=== PATIENT | male | born 1955 | race Caucasian/White ===

== ENCOUNTER 2016-05-14 01:22 | Emergency (ER) | payer MEDICAID ==
[~2016-05-14 01:22] MED LIST: /ESOM40CA OR; ACTO15TA OR; ASPI325T OR; ASTELIN NASAL SPRAY; CIPR25SS OR; DILA100C OR; GEMF600T OR; IBUP600T OR; KLOR10TA OR; LASI20TA OR; LISI5TAB OR; PLAV75TA2 OR; RAPAFLO OR; ZETI10TA OR
[2016-05-14] MEDS ORDERED: dexameTHASONE 20 MG/5 ML VIAL (J1100) As Ordered ONE ×2 (02:09→02:11)
[2016-05-14] MEDS ORDERED: diphenhydrAMINE INJ 50MG/ML VIAL (J1200) As Ordered ONE (02:10)
--- NOTE | 2016-05-14 02:56 | EDDOCDS ---
Nurse's Notes [facility] Name: Reji Armas Age: 60 yrs Sex: Male : 1955 Arrival Date: 05/14/2016 Time: 01:22 Bed 11 Private MD: Diagnosis: Allergy to other foods Presentation: 05/14 01:37 Presenting complaint: Patient states: swelling of tongue after eating a sandwhich with cz spicy brown mustard and an apple pie around 1830 last night fullness in throat and also left earache. Onset: The symptoms/episode began/occurred 7 hour(s) ago. This patient has not experienced a previous allergic reaction. Anaphylaxis evaluation, the patient reports or I have noted the following symptoms which indicate a significant risk of anaphylaxis: no signs or symptoms of anaphylaxis were noted. Adult Sepsis Screening: The patient does not have new or worsening altered mentation. Patient's respiratory rate is less than 22. Systolic blood pressure is greater than 100. Patient has a qSOFA score of 0- Negative Sepsis Screen. Suicide/Homicide risk assessment- the patient denies having any suicidal and/or homicidal ideations and does not present with any other emotional, behavioral or mental health complaints. Status: Patient is not a services program manager or dependent. Transition of care: patient was not received from another setting of care. 01:37 Acuity: BRODERICK Level 3 cz 01:37 Method Of Arrival: Walkin/Carried/Asstd cz Triage Assessment: 01:44 General: Appears in no apparent distress. Pain: Denies pain. HIV screening NA for this cz visit Offered previously. Historical: - Allergies: Codeine Phosphate; PENICILLINS; peppercorn; - Home Meds: 1. Artificial Tears 0.1-0.3% Opht 2. aspirin 325 mg Oral TbEC 1 tab once daily 3. atorvastatin 80 mg oral tab 1 tab once daily 4. Atrovent Inhl 17 mcg four times a day 5. Breo Ellipta 200-25 mcg/dose inhalation dsdv 6. calcitriol 0.25 mcg oral cap 1 cap once daily 7. cetirizine 10 mg oral tab 1 tab once daily 8. clopidogrel 75 mg oral tab 1 tab once daily 9. Colace 100 mg oral cap 1 cap 2 times per day 10. Combivent 20-100 mcg/act Inhl 11. famotidine 40 mg Oral tab 1 tab once daily 12. fenofibrate 160 mg oral tab 1 tab once daily 13. ferrous sulfate 325 mg (65 mg iron) Oral TbEC 325 mg twice a day 14. furosemide 40 mg Oral tab 1.5 tabs 2 times per day 15. Humalog Pen Sub-Q 5 unit with each meal if FSBS >150 16. Klor-Con 10 10 mEq Oral TbER 1 tab once daily 17. Lac-Hydrin 12 % Topical crea 18. Lantus 100 unit/mL Sub-Q soln 25 units daily 19. lisinopril 5 mg Oral tab 1 tab once daily 20. Mucinex 600 mg oral Ta12 twice a day 21. phenytoin sodium extended 100 mg oral cap 4 cap once daily 22. Tylenol 325 mg Oral tab as needed 23. Vitamin D Oral 14103 unit weekly - PMHx: Asthma; Chronic Renal Failure w/o Dialysis; COPD; Diabetes - IDDM: controlled; Gout; Hypercholesterolemia; Hypertension; - PSHx: Hernia repair; Tonsillectomy; - Social history: Smoking status: Patient uses tobacco products, heavy tobacco smoker. No barriers to communication noted, The patient speaks fluent Honduran, Speaks appropriately for age. - Family history: Not pertinent. - : The pt / caregiver states he / she is on anticoagulants: Plavix. Home medication list is obtained from [employer] import data. - Exposure Risk Screening:: None identified. Screenin:54 Screening information is obtained from the patient. Fall risk: No risks identified. mlc Assistance ADL's: requires no assistance with activities of daily living. Abuse/DV Screen: The patient / caregiver reports he/she is: not in a situation that causes fear, pain or injury. Nutritional screening: No deficits noted. Advance Directives: Currently, there is a health care proxy, Satya Armas, . There is no active DNR order. There is no living will. There is no Power of Pneumatic Tube Repairer. home support is adequate. Assessment: 01:54 General: Appears in no apparent distress, comfortable, Behavior is appropriate for age, mlc cooperative. Pain: Denies pain. Neurological: Level of Consciousness is awake, alert, Oriented to person, place, time. EENT: Ear canal ear wax noted. Throat is clear. EENT: pt reports feeling as if his tongue is swollen, no swelling noted. . Cardiovascular: Heart tones S1 S2 present. Respiratory: Airway is patent Respiratory effort is even, unlabored, Respiratory pattern is regular, Breath sounds are clear bilaterally. Denies shortness of breath. Derm: Skin is normal. 02:16 Reassessment: Patient appears in no apparent distress at this time. pt medicated per [facility] order. 02:52 Reassessment: Patient states feeling better. Patient states symptoms have improved. mlc General: Appears in no apparent distress, comfortable, Behavior is cooperative. Pain: Denies pain. Neurological: Level of Consciousness is awake, alert, Oriented to person, place, time. Respiratory: Airway is patent Respiratory effort is even, unlabored, Respiratory pattern is regular. Vital Signs: 01:44 BP 121 / 59; Pulse 99; Resp 16; Temp 97.1; Pulse Ox 96% on R/A; Weight 67.59 kg; Height cz 64 in. (162.56 cm); 02:52 BP 114 / 65; Pulse 105; Resp 18; Temp 98.7; Pulse Ox 95% ; Pain 0/10; mlc 01:44 Body Mass Index 25.58 (67.59 kg, 162.56 cm) Vitals: 01:44 Log In Time: May 14, 2016 at 01:24. ED Course: 01:24 Patient visited by Norma Stack Reg. hs2 01:24 Patient moved to Waiting hs2 01:37 Patient moved to Triage 1 cz 01:40 Triage Initiated cz 01:46 Sidra De Paz,JEIMY is Primary Nurse. cz 01:46 Patient moved to 11 cz 01:57 Patient visited by Sidra De Paz RN. [facility] 01:58 Mike Bowman DO is Attending Physician. cs11 01:59 Patient visited by Mike Bowman DO. cs11 02:17 Patient visited by Sidra De Paz RN. mlc 02:52 The patient / caregiver is instructed regarding the plan of care and ED course. mlc 02:52 No IV's were initiated during this patient's visit. No procedures done that require [facility] assistance. Administered Medications: 02:16 Drug: diphenhydrAMINE 25 mg [diphenhydramine 50 mg/mL injection solution (0.5 mL)] mlc Route: IM; Site: right deltoid; 02:54 Follow up: Response: No Adverse Reaction mlc 02:16 Drug: Decadron - Dexamethasone Sodium Phosphate 10 mg [dexamethasone 4 mg/mL injection mlc solution (2.5 mL)] Route: IM; Site: right gluteus; 02:55 Follow up: Response: No Adverse Reaction [facility] Order Results: There are currently no results for this order. Outcome: 02:36 Discharge ordered by Provider. cs11 02:52 Discharge Assessment: Patient awake, alert and oriented x 3. No cognitive and/or mlc functional deficits noted. Patient verbalized understanding of disposition instructions. patient administered narcotics - no. The following High Risk Discharge criteria are identified: None. Discharged to home ambulatory, with significant other. Condition: good Condition: stable Condition: improved. Discharge instructions given to patient, Instructed on discharge instructions, follow up and referral plans. medication usage, Demonstrated understanding of instructions, medications, Pt was receptive of discharge instructions/ teaching. Prescriptions given X 1. No special radiology studies were completed. Property sent home with patient. 02:55 Patient left the ED. [facility] Signatures: Rex Armenta RN RN cz Mike Bowman, DO cs11 Sidra De Paz RN RN [facility] Norma Stack, Reg Reg hs2 Corrections: (The following items were deleted from the chart) 01:46 01:37 Presenting complaint: Patient states: swelling of tongue after eating a sandwhich cz with spicy brown mustard and an apple pie around 1830 last night and also left earache cz MTDD
--- NOTE | 2016-05-14 02:56 | EDDOCDS ---
Physician Documentation [facility] Name: Reji Armas Age: 60 yrs Sex: Male : 1955 Arrival Date: 05/14/2016 Time: 01:22 Bed 11 Private MD: Disposition: 05/14/16 02:36 Discharged to Home/Self Care. Impression: Allergy to other foods. - Condition is Stable. - Prescriptions for Benadryl 25 mg Oral Capsule - take 1 capsule by ORAL route every 6 hours As needed; 12 tablet. - Medication Reconciliation, Local Pharmacy Hours form. - Follow up: Private Physician; When: Call to arrange an appointment; Reason: Recheck today's complaints. - Problem is new. - Symptoms have improved. Historical: - Allergies: Codeine Phosphate; PENICILLINS; peppercorn; - Home Meds: 1. Artificial Tears 0.1-0.3% Opht 2. aspirin 325 mg Oral TbEC 1 tab once daily 3. atorvastatin 80 mg oral tab 1 tab once daily 4. Atrovent Inhl 17 mcg four times a day 5. Breo Ellipta 200-25 mcg/dose inhalation dsdv 6. calcitriol 0.25 mcg oral cap 1 cap once daily 7. cetirizine 10 mg oral tab 1 tab once daily 8. clopidogrel 75 mg oral tab 1 tab once daily 9. Colace 100 mg oral cap 1 cap 2 times per day 10. Combivent 20-100 mcg/act Inhl 11. famotidine 40 mg Oral tab 1 tab once daily 12. fenofibrate 160 mg oral tab 1 tab once daily 13. ferrous sulfate 325 mg (65 mg iron) Oral TbEC 325 mg twice a day 14. furosemide 40 mg Oral tab 1.5 tabs 2 times per day 15. Humalog Pen Sub-Q 5 unit with each meal if FSBS >150 16. Klor-Con 10 10 mEq Oral TbER 1 tab once daily 17. Lac-Hydrin 12 % Topical crea 18. Lantus 100 unit/mL Sub-Q soln 25 units daily 19. lisinopril 5 mg Oral tab 1 tab once daily 20. Mucinex 600 mg oral Ta12 twice a day 21. phenytoin sodium extended 100 mg oral cap 4 cap once daily 22. Tylenol 325 mg Oral tab as needed 23. Vitamin D Oral 30877 unit weekly - PMHx: Asthma; Chronic Renal Failure w/o Dialysis; COPD; Diabetes - IDDM: controlled; Gout; Hypercholesterolemia; Hypertension; - PSHx: Hernia repair; Tonsillectomy; - Social history: Smoking status: Patient uses tobacco products, heavy tobacco smoker. No barriers to communication noted, The patient speaks fluent Pakistani, Speaks appropriately for age. - Family history: Not pertinent. - : The pt / caregiver states he / she is on anticoagulants: Plavix. Home medication list is obtained from [employer] import data. - Exposure Risk Screening:: None identified. Vital Signs: 05/14 01:44 BP 121 / 59; Pulse 99; Resp 16; Temp 97.1; Pulse Ox 96% on R/A; Weight 67.59 kg / cz 149.01 lbs; Height 64 in. (162.56 cm); 02:52 BP 114 / 65; Pulse 105; Resp 18; Temp 98.7; Pulse Ox 95% ; Pain 0/10; mlc 01:44 Body Mass Index 25.58 (67.59 kg, 162.56 cm) MDM: 02:05 diphenhydrAMINE 25 mg IM once ordered. cs11 02:05 Decadron - Dexamethasone Sodium Phosphate 10 mg IM once ordered. 11 02:52 Financial registration complete. [facility] Administered Medications: 02:16 Drug: diphenhydrAMINE 25 mg [diphenhydramine 50 mg/mL injection solution (0.5 mL)] [facility] Route: IM; Site: right deltoid; 02:54 Follow up: Response: No Adverse Reaction [facility] 02:16 Drug: Decadron - Dexamethasone Sodium Phosphate 10 mg [dexamethasone 4 mg/mL injection [facility] solution (2.5 mL)] Route: IM; Site: right gluteus; 02:55 Follow up: Response: No Adverse Reaction [facility] Signatures: Rex Armenta RN RN cz Mike Bowman DO DO [facility] Sidra De Paz RN RN [facility] Marzena Srinivasan [facility]
--- NOTE | 2016-05-16 03:56 | EDDOCDS ---
Physician Documentation [facility] Name: Reji Armas Age: 60 yrs Sex: Male : 1955 Arrival Date: 05/14/2016 Time: 01:22 Bed 11 Private MD: Disposition: 05/14/16 02:36 Discharged to Home/Self Care. Impression: Allergy to other foods. - Condition is Stable. - Prescriptions for Benadryl 25 mg Oral Capsule - take 1 capsule by ORAL route every 6 hours As needed; 12 tablet. - Medication Reconciliation, Local Pharmacy Hours form. - Follow up: Private Physician; When: Call to arrange an appointment; Reason: Recheck today's complaints. - Problem is new. - Symptoms have improved. Historical: - Allergies: Codeine Phosphate; PENICILLINS; peppercorn; - Home Meds: 1. Artificial Tears 0.1-0.3% Opht 2. aspirin 325 mg Oral TbEC 1 tab once daily 3. atorvastatin 80 mg oral tab 1 tab once daily 4. Atrovent Inhl 17 mcg four times a day 5. Breo Ellipta 200-25 mcg/dose inhalation dsdv 6. calcitriol 0.25 mcg oral cap 1 cap once daily 7. cetirizine 10 mg oral tab 1 tab once daily 8. clopidogrel 75 mg oral tab 1 tab once daily 9. Colace 100 mg oral cap 1 cap 2 times per day 10. Combivent 20-100 mcg/act Inhl 11. famotidine 40 mg Oral tab 1 tab once daily 12. fenofibrate 160 mg oral tab 1 tab once daily 13. ferrous sulfate 325 mg (65 mg iron) Oral TbEC 325 mg twice a day 14. furosemide 40 mg Oral tab 1.5 tabs 2 times per day 15. Humalog Pen Sub-Q 5 unit with each meal if FSBS >150 16. Klor-Con 10 10 mEq Oral TbER 1 tab once daily 17. Lac-Hydrin 12 % Topical crea 18. Lantus 100 unit/mL Sub-Q soln 25 units daily 19. lisinopril 5 mg Oral tab 1 tab once daily 20. Mucinex 600 mg oral Ta12 twice a day 21. phenytoin sodium extended 100 mg oral cap 4 cap once daily 22. Tylenol 325 mg Oral tab as needed 23. Vitamin D Oral 21465 unit weekly - PMHx: Asthma; Chronic Renal Failure w/o Dialysis; COPD; Diabetes - IDDM: controlled; Gout; Hypercholesterolemia; Hypertension; - PSHx: Hernia repair; Tonsillectomy; - Social history: Smoking status: Patient uses tobacco products, heavy tobacco smoker. No barriers to communication noted, The patient speaks fluent Turkmen, Speaks appropriately for age. - Family history: Not pertinent. - : The pt / caregiver states he / she is on anticoagulants: Plavix. Home medication list is obtained from [employer] import data. - Exposure Risk Screening:: None identified. Vital Signs: 05/14 01:44 BP 121 / 59; Pulse 99; Resp 16; Temp 97.1; Pulse Ox 96% on R/A; Weight 67.59 kg / cz 149.01 lbs; Height 64 in. (162.56 cm); 02:52 BP 114 / 65; Pulse 105; Resp 18; Temp 98.7; Pulse Ox 95% ; Pain 0/10; mlc 01:44 Body Mass Index 25.58 (67.59 kg, 162.56 cm) MDM: 02:05 diphenhydrAMINE 25 mg IM once ordered. cs11 02:05 Decadron - Dexamethasone Sodium Phosphate 10 mg IM once ordered. cs11 02:52 Financial registration complete. [facility] 03:10 [facility] Payment Agreement was scanned into [email or web address] and attached to record. hs2 17:42 T-Sheet-- Draft Copy was scanned into [email or web address] and attached to record. klr Administered Medications: 02:16 Drug: diphenhydrAMINE 25 mg [diphenhydramine 50 mg/mL injection solution (0.5 mL)] [facility] Route: IM; Site: right deltoid; 02:54 Follow up: Response: No Adverse Reaction [facility] 02:16 Drug: Decadron - Dexamethasone Sodium Phosphate 10 mg [dexamethasone 4 mg/mL injection [facility] solution (2.5 mL)] Route: IM; Site: right gluteus; 02:55 Follow up: Response: No Adverse Reaction [facility] Signatures: Rex Armenta RN RN cz Mike Bowman DO DO cs11 Sirda De Paz RN RN [facility] Marzena Srinivasan [facility] Norma Stack, Reg Reg hs2 Rashida Crawford r The chart was reviewed and I authenticate all verbal orders and agree with the evaluation and treatment provided.Attachments: 03:10 [facility] Payment Agreement hs2 17:42 T-Sheet-- Draft Copy klr Chart Complete MTDD
--- NOTE | 2016-05-16 03:56 | EDDOCDS ---
Nurse's Notes [facility] Name: Reji Armas Age: 60 yrs Sex: Male : 1955 Arrival Date: 05/14/2016 Time: 01:22 Bed 11 Private MD: Diagnosis: Allergy to other foods Presentation: 05/14 01:37 Presenting complaint: Patient states: swelling of tongue after eating a sandwhich with cz spicy brown mustard and an apple pie around 1830 last night fullness in throat and also left earache. Onset: The symptoms/episode began/occurred 7 hour(s) ago. This patient has not experienced a previous allergic reaction. Anaphylaxis evaluation, the patient reports or I have noted the following symptoms which indicate a significant risk of anaphylaxis: no signs or symptoms of anaphylaxis were noted. Adult Sepsis Screening: The patient does not have new or worsening altered mentation. Patient's respiratory rate is less than 22. Systolic blood pressure is greater than 100. Patient has a qSOFA score of 0- Negative Sepsis Screen. Suicide/Homicide risk assessment- the patient denies having any suicidal and/or homicidal ideations and does not present with any other emotional, behavioral or mental health complaints. Status: Patient is not a director of food and nutrition services or dependent. Transition of care: patient was not received from another setting of care. 01:37 Acuity: BRODERICK Level 3 cz 01:37 Method Of Arrival: Walkin/Carried/Asstd cz Triage Assessment: 01:44 General: Appears in no apparent distress. Pain: Denies pain. HIV screening NA for this cz visit Offered previously. Historical: - Allergies: Codeine Phosphate; PENICILLINS; peppercorn; - Home Meds: 1. Artificial Tears 0.1-0.3% Opht 2. aspirin 325 mg Oral TbEC 1 tab once daily 3. atorvastatin 80 mg oral tab 1 tab once daily 4. Atrovent Inhl 17 mcg four times a day 5. Breo Ellipta 200-25 mcg/dose inhalation dsdv 6. calcitriol 0.25 mcg oral cap 1 cap once daily 7. cetirizine 10 mg oral tab 1 tab once daily 8. clopidogrel 75 mg oral tab 1 tab once daily 9. Colace 100 mg oral cap 1 cap 2 times per day 10. Combivent 20-100 mcg/act Inhl 11. famotidine 40 mg Oral tab 1 tab once daily 12. fenofibrate 160 mg oral tab 1 tab once daily 13. ferrous sulfate 325 mg (65 mg iron) Oral TbEC 325 mg twice a day 14. furosemide 40 mg Oral tab 1.5 tabs 2 times per day 15. Humalog Pen Sub-Q 5 unit with each meal if FSBS >150 16. Klor-Con 10 10 mEq Oral TbER 1 tab once daily 17. Lac-Hydrin 12 % Topical crea 18. Lantus 100 unit/mL Sub-Q soln 25 units daily 19. lisinopril 5 mg Oral tab 1 tab once daily 20. Mucinex 600 mg oral Ta12 twice a day 21. phenytoin sodium extended 100 mg oral cap 4 cap once daily 22. Tylenol 325 mg Oral tab as needed 23. Vitamin D Oral 57775 unit weekly - PMHx: Asthma; Chronic Renal Failure w/o Dialysis; COPD; Diabetes - IDDM: controlled; Gout; Hypercholesterolemia; Hypertension; - PSHx: Hernia repair; Tonsillectomy; - Social history: Smoking status: Patient uses tobacco products, heavy tobacco smoker. No barriers to communication noted, The patient speaks fluent Northern Irish, Speaks appropriately for age. - Family history: Not pertinent. - : The pt / caregiver states he / she is on anticoagulants: Plavix. Home medication list is obtained from [employer] import data. - Exposure Risk Screening:: None identified. Screenin:54 Screening information is obtained from the patient. Fall risk: No risks identified. mlc Assistance ADL's: requires no assistance with activities of daily living. Abuse/DV Screen: The patient / caregiver reports he/she is: not in a situation that causes fear, pain or injury. Nutritional screening: No deficits noted. Advance Directives: Currently, there is a health care proxy, Satya Armas, . There is no active DNR order. There is no living will. There is no Power of Financial Services Sales Representative. home support is adequate. Assessment: 01:54 General: Appears in no apparent distress, comfortable, Behavior is appropriate for age, mlc cooperative. Pain: Denies pain. Neurological: Level of Consciousness is awake, alert, Oriented to person, place, time. EENT: Ear canal ear wax noted. Throat is clear. EENT: pt reports feeling as if his tongue is swollen, no swelling noted. . Cardiovascular: Heart tones S1 S2 present. Respiratory: Airway is patent Respiratory effort is even, unlabored, Respiratory pattern is regular, Breath sounds are clear bilaterally. Denies shortness of breath. Derm: Skin is normal. 02:16 Reassessment: Patient appears in no apparent distress at this time. pt medicated per [facility] order. 02:52 Reassessment: Patient states feeling better. Patient states symptoms have improved. mlc General: Appears in no apparent distress, comfortable, Behavior is cooperative. Pain: Denies pain. Neurological: Level of Consciousness is awake, alert, Oriented to person, place, time. Respiratory: Airway is patent Respiratory effort is even, unlabored, Respiratory pattern is regular. Vital Signs: 01:44 BP 121 / 59; Pulse 99; Resp 16; Temp 97.1; Pulse Ox 96% on R/A; Weight 67.59 kg; Height cz 64 in. (162.56 cm); 02:52 BP 114 / 65; Pulse 105; Resp 18; Temp 98.7; Pulse Ox 95% ; Pain 0/10; mlc 01:44 Body Mass Index 25.58 (67.59 kg, 162.56 cm) Vitals: 01:44 Log In Time: May 14, 2016 at 01:24. ED Course: 01:24 Patient visited by Norma Stack Reg. hs2 01:24 Patient moved to Waiting hs2 01:37 Patient moved to Triage 1 cz 01:40 Triage Initiated cz 01:46 Sidra De Paz,RN is Primary Nurse. cz 01:46 Patient moved to 11 cz 01:57 Patient visited by Sidra De Paz RN. mlc 01:58 Mike Bowman DO is Attending Physician. cs11 01:59 Patient visited by Mike Bowman DO. cs11 02:17 Patient visited by Sidra De Paz RN. mlc 02:52 The patient / caregiver is instructed regarding the plan of care and ED course. mlc 02:52 No IV's were initiated during this patient's visit. No procedures done that require [facility] assistance. 03:10 [facility] Payment Agreement was scanned into [employer] and attached to record. hs2 17:42 T-Sheet-- Draft Copy was scanned into [employer] and attached to record. klr Administered Medications: 02:16 Drug: diphenhydrAMINE 25 mg [diphenhydramine 50 mg/mL injection solution (0.5 mL)] [facility] Route: IM; Site: right deltoid; 02:54 Follow up: Response: No Adverse Reaction [facility] 02:16 Drug: Decadron - Dexamethasone Sodium Phosphate 10 mg [dexamethasone 4 mg/mL injection mlc solution (2.5 mL)] Route: IM; Site: right gluteus; 02:55 Follow up: Response: No Adverse Reaction [facility] Order Results: There are currently no results for this order. Outcome: 02:36 Discharge ordered by Provider. 11 02:52 Discharge Assessment: Patient awake, alert and oriented x 3. No cognitive and/or mlc functional deficits noted. Patient verbalized understanding of disposition instructions. patient administered narcotics - no. The following High Risk Discharge criteria are identified: None. Discharged to home ambulatory, with significant other. Condition: good Condition: stable Condition: improved. Discharge instructions given to patient, Instructed on discharge instructions, follow up and referral plans. medication usage, Demonstrated understanding of instructions, medications, Pt was receptive of discharge instructions/ teaching. Prescriptions given X 1. No special radiology studies were completed. Property sent home with patient. 02:55 Patient left the ED. [facility] Signatures: Rex Armenta, RN RN cz Mike Bowman, DO DO cs11 Sidra De Paz RN RN mlc Norma tSack, Reg Reg hs2 Rashida Crawford Corrections: (The following items were deleted from the chart) 01:46 01:37 Presenting complaint: Patient states: swelling of tongue after eating a sandwhich cz with spicy brown mustard and an apple pie around 1830 last night and also left earache cz Chart Complete MTDD
--- NOTE | 2016-05-16 03:56 | EDDOCDS ---
Physician Documentation [facility] Name: Rjei Armas Age: 60 yrs Sex: Male : 1955 Arrival Date: 05/14/2016 Time: 01:22 Bed 11 Private MD: Disposition: 05/14/16 02:36 Discharged to Home/Self Care. Impression: Allergy to other foods. - Condition is Stable. - Prescriptions for Benadryl 25 mg Oral Capsule - take 1 capsule by ORAL route every 6 hours As needed; 12 tablet. - Medication Reconciliation, Local Pharmacy Hours form. - Follow up: Private Physician; When: Call to arrange an appointment; Reason: Recheck today's complaints. - Problem is new. - Symptoms have improved. Historical: - Allergies: Codeine Phosphate; PENICILLINS; peppercorn; - Home Meds: 1. Artificial Tears 0.1-0.3% Opht 2. aspirin 325 mg Oral TbEC 1 tab once daily 3. atorvastatin 80 mg oral tab 1 tab once daily 4. Atrovent Inhl 17 mcg four times a day 5. Breo Ellipta 200-25 mcg/dose inhalation dsdv 6. calcitriol 0.25 mcg oral cap 1 cap once daily 7. cetirizine 10 mg oral tab 1 tab once daily 8. clopidogrel 75 mg oral tab 1 tab once daily 9. Colace 100 mg oral cap 1 cap 2 times per day 10. Combivent 20-100 mcg/act Inhl 11. famotidine 40 mg Oral tab 1 tab once daily 12. fenofibrate 160 mg oral tab 1 tab once daily 13. ferrous sulfate 325 mg (65 mg iron) Oral TbEC 325 mg twice a day 14. furosemide 40 mg Oral tab 1.5 tabs 2 times per day 15. Humalog Pen Sub-Q 5 unit with each meal if FSBS >150 16. Klor-Con 10 10 mEq Oral TbER 1 tab once daily 17. Lac-Hydrin 12 % Topical crea 18. Lantus 100 unit/mL Sub-Q soln 25 units daily 19. lisinopril 5 mg Oral tab 1 tab once daily 20. Mucinex 600 mg oral Ta12 twice a day 21. phenytoin sodium extended 100 mg oral cap 4 cap once daily 22. Tylenol 325 mg Oral tab as needed 23. Vitamin D Oral 59872 unit weekly - PMHx: Asthma; Chronic Renal Failure w/o Dialysis; COPD; Diabetes - IDDM: controlled; Gout; Hypercholesterolemia; Hypertension; - PSHx: Hernia repair; Tonsillectomy; - Social history: Smoking status: Patient uses tobacco products, heavy tobacco smoker. No barriers to communication noted, The patient speaks fluent [place], Speaks appropriately for age. - Family history: Not pertinent. - : The pt / caregiver states he / she is on anticoagulants: Plavix. Home medication list is obtained from [employer] import data. - Exposure Risk Screening:: None identified. Vital Signs: 05/14 01:44 BP 121 / 59; Pulse 99; Resp 16; Temp 97.1; Pulse Ox 96% on R/A; Weight 67.59 kg / cz 149.01 lbs; Height 64 in. (162.56 cm); 02:52 BP 114 / 65; Pulse 105; Resp 18; Temp 98.7; Pulse Ox 95% ; Pain 0/10; mlc 01:44 Body Mass Index 25.58 (67.59 kg, 162.56 cm) MDM: 02:05 diphenhydrAMINE 25 mg IM once ordered. cs11 02:05 Decadron - Dexamethasone Sodium Phosphate 10 mg IM once ordered. cs11 02:52 Financial registration complete. [facility] 03:10 [facility] Payment Agreement was scanned into [employer] and attached to record. hs2 17:42 T-Sheet-- Draft Copy was scanned into [employer] and attached to record. klr Administered Medications: 02:16 Drug: diphenhydrAMINE 25 mg [diphenhydramine 50 mg/mL injection solution (0.5 mL)] [facility] [place]: IM; Site: right deltoid; 02:54 Follow up: Response: No Adverse Reaction [facility]:16 Drug: Decadron - Dexamethasone Sodium Phosphate 10 mg [dexamethasone 4 mg/mL injection [facility] solution (2.5 mL)] Route: IM; Site: right gluteus; 02:55 Follow up: Response: No Adverse Reaction [facility] Signatures: Rex Armenta RN RN cz Mike Bowman DO DO cs11 Sidra De Paz RN RN [facility] Marzena Srinivasan [facility] Norma Stack, Reg Reg hs2 Rashida Crawford r The chart was reviewed and I authenticate all verbal orders and agree with the evaluation and treatment provided.Attachments: 03:10 [facility] Payment Agreement hs2 17:42 T-Sheet-- Draft Copy klr Chart Complete MTDD
== END 2016-05-14 02:55 | disposition home or self-care (01) ==
LOC: M ED 01:22
DX: T78.1XXA Other adverse food reactions, not elsewhere classified, initial encounter (principal); X58.XXXA Exposure to other specified factors, initial encounter; Y92.89 Other specified places as the place of occurrence of the external cause; Y93.89 Activity, other specified; Y99.8 Other external cause status; N18.9 Chronic kidney disease, unspecified; I12.9 Hypertensive chronic kidney disease with stage 1 through stage 4 chronic kidney disease, or unspecified chronic kidney disease; E10.22 Type 1 diabetes mellitus with diabetic chronic kidney disease; J44.9 Chronic obstructive pulmonary disease, unspecified; J45.909 Unspecified asthma, uncomplicated; E78.00 Pure hypercholesterolemia, unspecified; M10.9 Gout, unspecified; F17.200 Nicotine dependence, unspecified, uncomplicated; Z79.4 Long term (current) use of insulin; Z79.82 Long term (current) use of aspirin; Z79.51 Long term (current) use of inhaled steroids; Z79.899 Other long term (current) drug therapy; Z88.0 Allergy status to penicillin; Z88.5 Allergy status to narcotic agent; Z91.018 Allergy to other foods
CPT/HCPCS: 96372; 99283; J1100; J1200

== ENCOUNTER → 2016-05-30 | Outpatient (CLI) | payer MEDICAID | LOC: M LAB 11:43 | PROVIDERS: ATTEND Internal Medicine Nephrology | DX: N25.81 Secondary hyperparathyroidism of renal origin (principal); E11.22 Type 2 diabetes mellitus with diabetic chronic kidney disease; D63.1 Anemia in chronic kidney disease; M10.9 Gout, unspecified ==

== ENCOUNTER → 2016-05-30 | Outpatient (CLI) | payer MEDICAID ==
[2016-05-30 13:15] LABS: MEAN CORPUSCULAR HEMOGLOBIN 31.2 pg (27.0-33.0); MEAN CORPUSCULAR HGB CONC 32.5 g/dl (32.0-36.5); RED CELL DISTRIBUTION WIDTH 14.4 % (11.5-14.5); WHITE BLOOD COUNT 9.1 K/mm3 (4.0-10.0)
[2016-05-30 13:50] LABS: ALBUMIN/GLOBULIN RATIO 1.18 (1.00-1.93); BILIRUBIN,TOTAL 0.3 MG/DL (0.2-1.0); CALCIUM LEVEL 9.1 MG/DL (8.8-10.2); CREATININE FOR GFR 2.29 MG/DL (0.70-1.30); TOTAL PROTEIN 7.4 GM/DL (6.4-8.2)
[2016-05-30 13:51] LABS: POTASSIUM SERUM 5.7 MEQ/L (3.5-5.1)
== END ==
LOC: M LAB 12:00
PROVIDERS: ATTEND Nurse Practitioner Family
DX: R56.9 Unspecified convulsions (principal); E11.9 Type 2 diabetes mellitus without complications; D64.9 Anemia, unspecified

== ENCOUNTER 2016-06-16 17:42 | Emergency (ER) | payer MEDICAID ==
[~2016-06-16] VITALS: Ht 162.6 cm; Wt 73.0 kg
[2016-06-16] MEDS ORDERED: FERR325T3 PO (18:33)
[2016-06-16] MEDS ORDERED: MUCI600T34 PO (18:33)
[2016-06-16] MEDS ORDERED: COLA100C PO (18:33)
[2016-06-16] MEDS ORDERED: DRIS50002 PO (18:33)
[2016-06-16] MEDS ORDERED: ATOR1TAB18 PO (18:33)
[2016-06-16] MEDS ORDERED: CETI1SYP16 PO (18:33)
[2016-06-16] MEDS ORDERED: BREO1INH3 INH (18:33)
[2016-06-16] MEDS ORDERED: FENO145T PO (18:33)
[2016-06-16] MEDS ORDERED: INSULADS INJ (18:33)
[2016-06-16] MEDS ORDERED: INSULANT SC (18:33)
[2016-06-16] MEDS ORDERED: FAMO40TA3 PO (18:33)
[2016-06-16] MEDS ORDERED: CALC1CAP31 PO (18:33)
[2016-06-16] MEDS ORDERED: PERCOCET 5MG/325MG TAB PO ONE (21:15)
[2016-06-16 21:26] LABS: BASO # 0.1 K/mm3 (0.0-0.2); BASO % 0.5 % (0.0-1.0); EOS # 0.3 K/mm3 (0.0-0.50); EOS % 2.8 % (0.0-3.0); LARGE UNSTAINED CELL # 0.2 K/mm3 (0.0-0.4); LARGE UNSTAINED CELL % 1.6 % (0.0-4.0); LYMPH # 2.6 K/mm3 (1.5-4.5); LYMPH % 20.4 % (24.0-44.0); MEAN CORPUSCULAR HEMOGLOBIN 31.7 pg (27.0-33.0); MEAN CORPUSCULAR VOLUME 95.9 fl (80.0-96.0); MONO # 0.5 K/mm3 (0.0-0.8); NEUTROPHILS # 8.5 K/mm3 (1.8-7.7); NEUTROPHILS % 70.7 % (36.0-66.0); PLATELET COUNT, AUTOMATED 497 k/mm3 (150-450); RED CELL DISTRIBUTION WIDTH 14.8 % (11.5-14.5)
[2016-06-16 21:55] LABS: ERYTHROCYTE SEDIMENTATION RATE 70 mm/hr (0-20)
[2016-06-16 21:56] LABS: ALBUMIN 3.9 GM/DL (3.2-5.2); ALBUMIN/GLOBULIN RATIO 1.05 (1.00-1.93); BILIRUBIN,DIRECT 0.1 MG/DL (0.0-0.2); BILIRUBIN,TOTAL 0.3 MG/DL (0.2-1.0); CALCIUM LEVEL 8.8 MG/DL (8.8-10.2); CREATININE FOR GFR 3.31 MG/DL (0.70-1.30); GLOMERULAR FILTRATION RATE 20.3 (>49); POTASSIUM SERUM 4.4 MEQ/L (3.5-5.1); TOTAL PROTEIN 7.6 GM/DL (6.4-8.2); URIC ACID 4.6 MG/DL (3.5-7.2)
[2016-06-16] MEDS ORDERED: LIDOCAINE 2% MDV 20 ML VIAL SC ONE (23:00)
[2016-06-16 23:54] LABS: RBC ADVIA BF 0.02; RBC CALC. BF 20000 (< 10mm3 cells/uL); WBC ADVIA BF 19.8; WBC CALC. BF 19800 cells/uL (0-20)
[2016-06-16 23:55] LABS: BF DIFF IF INDICATED? YES (NO); SYNOVIAL FLUID COLOR YELLOW (YELLOW)
--- NOTE | 2016-06-17 00:09 | CR.PDOC ---
[facility] Consultation Consultation DATE OF CONSULTATION: Jun 16, 2016 at 20:01 REFERRING PROVIDER: Emergency room PA ATTENDING PHYSICIAN: Dr. Jason Brandt REASON FOR CONSULTATION/CHIEF COMPLAINT: Left knee pain and swelling. HISTORY OF PRESENT ILLNESS: Patient is a 60 y/o male with multiple medical comorbidities and a history of gout with multiple gouty attacks in multiple joints with a 3 day history of knee swelling and pain that has been worsening. He is able to bear weight with crutches and presented to the [facility] ED earlier today for evaluation. He denies recent fevers, chills, night sweats, or other constitutional symptoms. ALLERGIES: Please see below. HOME MEDICATIONS: Please see below. PAST MEDICAL HISTORY: 1. CKD. 2. Diabetes 3. COPD 4. Hypertension 5. hypercholesterolemia PAST SURGICAL HISTORY: 1. hernia repair 2. appendectomy FAMILY HISTORY: non contributory SOCIAL HISTORY: Marital status and/or living arrangements: lives with Tobacco use: everyday smoker more than 1/2 ppd for 30+ yrs REVIEW OF SYSTEMS: CONSTITUTIONAL: no fevers/chills/night sweats. CARDIOVASCULAR: no chest pain, palpitations. RESPIRATORY: no recent cough, wheeze, shortness of breath. GENITOURINARY: + urinary catheter x 3 years. MUSCULOSKELETAL: + L knee swelling per HPI. Multiple gouty attacks per HPI GASTROINTESTINAL: No nausea, vomiting, diarrhea. ENDOCRINE: no recent unintended weight gain/loss, heat/cold intolerance. PHYSICAL EXAMINATION: VITAL SIGNS: Please see below. GENERAL APPEARANCE: cachetic male, appears older than stated age, no acute distress. HEENT: anicteric sclera. CARDIOVASCULAR: 2+ DP/PT pulses, brisk capillary refill left lower extremity. EXTREMITIES: L knee exam demonstrates visible and palpable effusion. Patient with active ROM from 0-95 degrees. Minimal increase in pain with axial load. no pain with passive knee ROM. Ligamentous exam stable. NEUROLOGICAL: Sensory and motor intact in LLE femoral, tibial, sural, saphenous , SPN, DPN distributions. LABORATORY DATA: Please see below. RADIOGRAPHS: Plain radiographs of the knee demonstrate evidence of a knee effusion. No fracture or dislocation. Synovial fluid analysis: Synovial WBC 19,800 Crustals pending ASSESSMENT/PLAN: 60 y/o male with left knee effusion. Synovial WBC signifies inflammatory process. Infectious etiology ruled out with WBC count >50,000. 1. A left knee arthrocentesis was performed at the bedside. 2. Synovial fluid analysis reveals WBC 19,800. This signifies an inflammatory process. Likely secondary to gout. Crystals pending 3. Recommend supportive therapy with pain control. 4. NSAIDS contraindicated secondary to CKD, corticosteroids cautioned secondary to blood glucose impact in a diabetic. 5. Follow up with PCM regarding control of gouty attacks Vital Signs/I&O Vital Signs Date Time Temp Pulse Resp B/P Pulse Ox O2 Delivery O2 Flow Rate FiO2 06/16/16 22:26 99.5 105 16 97/55 92 Room Air Laboratory Data Labs 24H Laboratory Tests 2 06/16/16 21:20: Aspartate Amino Transf (AST/SGOT) 17, Alanine Aminotransferase (ALT/SGPT) 16, Alkaline Phosphatase 142H, Total Bilirubin 0.3, Direct Bilirubin 0.1, Albumin 3.9, Albumin/Globulin Ratio 1.05, Anion Gap 10, White Blood Count 12.0H, Red Blood Count 3.87L, Hemoglobin 12.2L, Hematocrit 37.1L, Mean Corpuscular Volume 95.9, Mean Corpuscular Hemoglobin 31.7, Mean Corpuscular Hemoglobin Concent 33.0 , Red Cell Distribution Width 14.8H, Platelet Count 497H, Neutrophils (%) (Auto ) 70.7H, Lymphocytes (%) (Auto) 20.4L, Monocytes (%) (Auto) 4.0, Eosinophils (% ) (Auto) 2.8, Basophils (%) (Auto) 0.5, Neutrophils # (Auto) 8.5H, Lymphocytes # (Auto) 2.6, Monocytes # (Auto) 0.5, Eosinophils # (Auto) 0.3, Basophils # ( Auto) 0.1, C-Reactive Protein, Quantitative 6.07H, Calcium Level 8.8, Erythrocyte Sedimentation Rate 70H, Glomerular Filtration Rate 20.3L, Large Unclassified Cells # 0.2, Large Unclassified Cells % 1.6, Total Protein 7.6, Uric Acid 4.6 CBC/BMP Laboratory Tests 06/16/16 21:20 Red Blood Count 3.87 L, Mean Corpuscular Volume 95.9, Mean Corpuscular Hemoglobin 31.7, Mean Corpuscular Hemoglobin Concent 33.0, Red Cell Distribution Width 14.8 H, Neutrophils (%) (Auto) 70.7 H, Lymphocytes (%) (Auto ) 20.4 L, Monocytes (%) (Auto) 4.0, Eosinophils (%) (Auto) 2.8, Basophils (%) ( Auto) 0.5, Neutrophils # (Auto) 8.5 H, Lymphocytes # (Auto) 2.6, Monocytes # ( Auto) 0.5, Eosinophils # (Auto) 0.3, Basophils # (Auto) 0.1 Allergies Coded Allergies: Codeine (Verified Allergy, Severe, DIFFICULTY BREATHING, THROAT SWELLING, 07/16/12) Penicillins (Verified Allergy, Severe, DIFFICULTY BREATHING, THROAT SWELLING, 07/16/12) Penicillins Cross Reactors (Verified Allergy, Severe, DIFFICULTY BREATHING , THROAT SWELLING, 07/16/12) Meat (Verified Allergy, Intermediate, SALAMI CAUSES SWELLING, 07/13/11) Home Medications Scheduled Aspirin (Aspirin) 325 Mg Tab 325 MG OR DAILY (Reported) Atorvastatin Calcium (Atorvastatin Calcium) 80 Mg Tab 80 MG PO DAILY (Reported ) Calcitriol (Calcitriol) 0.25 Mcg Cap 0.25 MCG PO DAILY (Reported) Cetirizine Hcl (Cetirizine HCl) 5 Mg/5 Ml Syp 10 MG PO DAILY (Reported) Clopidogrel Bisulfate (Plavix) 75 Mg Tab 75 MG OR DAILY (Reported) Famotidine (Famotidine) 40 Mg Tab 40 MG PO DAILY (Reported) Fenofibrate (Fenofibrate) 145 Mg Tab 160 MG PO DAILY (Reported) Ferrous Sulfate (Ferrous Sulfate) 325 Mg Tab 325 MG PO DAILY (Reported) Fluticasone/Vilanterol (Breo Ellipta 200-25 Mcg/INH) 1 Inh Inh 1 PUFF INH DAILY (Reported) Furosemide (Lasix) 20 Mg Tab 60 MG OR BID (Reported) Gemfibrozil (Gemfibrozil) 600 Mg Tab 600 MG OR BID (Reported) Guaifenesin (Mucinex) 600 Mg Tab #30 600 MG PO BID (Reported) Ibuprofen Micronized (Motrin) 600 Mg Tab 600 MG OR TID (Reported) Insulin Glargine (Lantus) 1 Units/0.01 Ml Susp 1 UNITS SC QHS (Reported) Insulin Glargine (Lantus) 100 Unit/Ml Inj 20 UNIT INJ QHS (Reported) Lisinopril (Lisinopril) 5 Mg Tab 5 MG OR DAILY (Reported) Phenytoin (Dilantin) 100 Mg Cap 100 MG OR TID (Reported) Vitamin D (Drisdol) 50,000 Unit Cap 50,000 UNIT PO 1XWK (Reported) Scheduled PRN Docusate Sodium (Colace) 100 Mg Cap 100 MG PO DAILY PRN PRN DAILY (Reported) LINDA BRANDT MD Jun 16, 2016 23:41
[2016-06-17] MEDS ORDERED: PERC5TAB6 PO (00:16)
[2016-06-17 00:37] VITALS: BP 147/81
[2016-06-17 07:18] LABS: CC BF DIFF EXAM UNSPUN; HCT SOURCE LFT KNEE
--- NOTE | 2016-06-17 08:41 | REP ---
Left knee series: Five views. History: Pain and swelling. Findings: There is diffuse osteopenia. Mild patellofemoral spurring is seen. Subcortical cyst formation is seen in the central patella on the lateral radiograph. There is evidence of a joint effusion. Vascular calcification is noted. Very early spurring is seen in the medial tibial femoral compartment. Impression: Diffuse osteoporosis. Early osteoarthritic changes in the medial and patellofemoral compartment. Joint effusion. Subcortical cyst formation in the central patella. No acute bony abnormality. Signed by Brett Gambino MD 06/17/2016 10:44 A
== END 2016-06-17 00:38 | disposition home or self-care (01) ==
LOC: M ED 20:01
DX: M25.562 Pain in left knee (principal); I12.9 Hypertensive chronic kidney disease with stage 1 through stage 4 chronic kidney disease, or unspecified chronic kidney disease; R56.9 Unspecified convulsions; E78.00 Pure hypercholesterolemia, unspecified; J44.9 Chronic obstructive pulmonary disease, unspecified; N18.3 Chronic kidney disease, stage 3 (moderate); M10.9 Gout, unspecified; Z88.0 Allergy status to penicillin; Z88.5 Allergy status to narcotic agent; Z91.018 Allergy to other foods; Z79.899 Other long term (current) drug therapy; Z79.82 Long term (current) use of aspirin; Z79.1 Long term (current) use of non-steroidal anti-inflammatories (NSAID); Z79.4 Long term (current) use of insulin

== ENCOUNTER → 2016-07-19 | Outpatient (CLI) | payer MEDICAID ==
[~2016-07-19] MED LIST changes: +ATOR1TAB18 PO; +BREO1INH3 INH; +CALC1CAP31 PO; +CETI1SYP16 PO; +COLA100C3 PO; +DRIS50002 PO; +FAMO40TA3 PO; +FENO145T PO; +FERR325T3 PO; +INSULADS INJ; +INSULANT SC; +MUCI600T34 PO; +PERC5TAB6 PO
== END ==
LOC: M WHC 15:22
PROVIDERS: ATTEND Nurse Practitioner Family
DX: M81.0 Age-related osteoporosis without current pathological fracture (principal); Z13.820 Encounter for screening for osteoporosis

== ENCOUNTER → 2016-07-20 | Outpatient (CLI) | payer MEDICAID ==
[2016-07-20 10:43] LABS: MEAN CORPUSCULAR HEMOGLOBIN 31.7 pg (27.0-33.0); MEAN CORPUSCULAR HGB CONC 32.7 g/dl (32.0-36.5); MEAN CORPUSCULAR VOLUME 96.9 fl (80.0-96.0); RED CELL DISTRIBUTION WIDTH 14.4 % (11.5-14.5); WHITE BLOOD COUNT 9.8 K/mm3 (4.0-10.0)
== END ==
LOC: M LAB 10:01
PROVIDERS: ATTEND Nurse Practitioner Family
DX: M10.062 Idiopathic gout, left knee (principal)

== ENCOUNTER → 2016-08-26 | Outpatient (CLI) | payer MEDICAID ==
[2016-08-26 18:01] LABS: MEAN CORPUSCULAR HEMOGLOBIN 33.6 pg (27.0-33.0); MEAN CORPUSCULAR HGB CONC 34.1 g/dl (32.0-36.5); MEAN CORPUSCULAR VOLUME 98.4 fl (80.0-96.0); RED CELL DISTRIBUTION WIDTH 14.3 % (11.5-14.5); WHITE BLOOD COUNT 8.5 K/mm3 (4.0-10.0)
[2016-08-26 18:32] LABS: ALBUMIN 3.7 GM/DL (3.2-5.2); CALCIUM LEVEL 8.5 MG/DL (8.8-10.2); CREATININE FOR GFR 2.41 MG/DL (0.70-1.30); GLOMERULAR FILTRATION RATE 29.1 (>49); PHOSPHORUS LEVEL 4.5 MG/DL (2.5-4.9); POTASSIUM SERUM 4.4 MEQ/L (3.5-5.1)
== END ==
LOC: M SMT 14:39
PROVIDERS: ATTEND Internal Medicine Nephrology
DX: N18.4 Chronic kidney disease, stage 4 (severe) (principal); D63.1 Anemia in chronic kidney disease; M10.9 Gout, unspecified; N25.81 Secondary hyperparathyroidism of renal origin

== ENCOUNTER → 2016-09-23 | Outpatient (CLI) | payer MEDICAID | LOC: M SMT 13:50 | PROVIDERS: ATTEND Nurse Practitioner Family | DX: Z12.5 Encounter for screening for malignant neoplasm of prostate (principal) ==

== ENCOUNTER → 2016-09-29 | Outpatient (CLI) | payer MEDICAID ==
--- NOTE | 2016-09-29 16:58 | REP ---
ULTRASOUND RIGHT INGUINAL CANAL: Real-time sonographic evaluation of right inguinal canal performed. There are a few lymph nodes present, the largest 3.6 x 0.9 x 0.8 cm. This is mildly enlarged. In the subcutaneous soft tissues, is a heterogeneous hypoechoic and hyperechoic nodule measuring 11 x 4 x 8 mm. This is nonspecific. Given its superficial location, it could represent a sebaceous cyst. Signed by Roldan Bobby MD 09/29/2016 05:16 P
== END ==
LOC: M SMT 14:13
PROVIDERS: ATTEND Nurse Practitioner Family
DX: R10.30 Lower abdominal pain, unspecified (principal)

== ENCOUNTER → 2016-10-18 | Outpatient (CLI) | payer OTHER ==
[~2016-10-18] MED LIST changes: +ALBU17IN INH; -ATOR1TAB18 PO; +ATOR80TA59 PO; -COLA100C3 PO; +COLA100C5 PO; +COMBAER6 INH; +FLUT22IN INH; -MUCI600T34 PO; +MUCI600T37 PO; +OXYC1TAB23 PO; +PERC5TAB12 PO; -PERC5TAB6 PO
--- NOTE | 2016-10-18 23:14 | REP ---
Clinical: Urinary retention. Comparison: 09/01/2015. Findings: Lung bases demonstrate mild bronchiectasis and scattered chronic appearing fibroatelectatic changes. Liver, spleen, pancreas, gallbladder, bilateral adrenal glands and kidneys are relatively normal / stable. Mild chronic-appearing perinephric stranding is appreciated and essentially unchanged. No hydroureteronephrosis. The enteric system is without obstruction or acute inflammatory process. Few scattered sigmoid diverticula noted without acute diverticulitis. 2 cm fat containing periumbilical hernia noted. Pelvis demonstrates a Mike catheter in collapsed bladder and mild bladder wall thickening cannot be excluded. Prostate gland is age-appropriate. No ascites. No free air. No obvious adenopathy. Moderate atherosclerotic changes of the aorta and branch vessels noted without aneurysm. Musculoskeletal structures are intact. Impression: 1. Lung bases demonstrate chronic-appearing bronchiectasis and mild fibroatelectatic changes which may warrant clinical correlation and follow up. 2. 2 cm fat containing periumbilical hernia. 3. Scattered sigmoid diverticula without acute diverticulitis. 4. Relatively normal appearance to the urinary tract system including Mike catheter in collapsed bladder. Mild bladder wall thickening cannot be excluded. 5. Further chronic changes as described above. No free fluid, adenopathy, or obvious acute abdominopelvic pathology otherwise appreciated. Signed by Brian Mathew MD 10/18/2016 11:05 P
== END ==
LOC: M RAD 12:05
PROVIDERS: ATTEND Urology
DX: R33.9 Retention of urine, unspecified (principal)

== ENCOUNTER → 2016-10-24 | Outpatient (CLI) | payer OTHER, MEDICAID ==
[2016-10-24 19:31] LABS: ALBUMIN 4.3 GM/DL (3.2-5.2); ALBUMIN/GLOBULIN RATIO 1.39 (1.00-1.93); BILIRUBIN,TOTAL 0.4 MG/DL (0.2-1.0); CALCIUM LEVEL 9.2 MG/DL (8.8-10.2); CREATININE FOR GFR 2.52 MG/DL (0.70-1.30); GLOMERULAR FILTRATION RATE 27.7 (>49); TOTAL PROTEIN 7.4 GM/DL (6.4-8.2)
== END ==
LOC: M SMT 14:22
PROVIDERS: ATTEND Nurse Practitioner Family
DX: E11.9 Type 2 diabetes mellitus without complications (principal)

== ENCOUNTER 2016-12-02 15:05 | Emergency (ER) | payer OTHER, MEDICAID ==
[~2016-12-02] VITALS: Ht 157.5 cm; Wt 79.5 kg
[~2016-12-02 15:05] MED LIST changes: -ALBU17IN INH; -COMBAER6 INH; -FLUT22IN INH; -OXYC1TAB23 PO
[2016-12-02 15:06] VITALS: BP 108/57
[2016-12-02] MEDS ORDERED: FLUT22IN INH (15:30)
[2016-12-02] MEDS ORDERED: ALBU17IN INH (15:30)
[2016-12-02] MEDS ORDERED: COMBAER6 INH (15:30)
--- NOTE | 2016-12-02 16:08 | REP ---
Left ankle series: Four views. History: Injury in a fall. Findings: Four views of the left ankle demonstrate anterior lateral soft tissue swelling. There is a subcortical cyst in the distal fibula. Ankle mortise is intact. Medial malleolar spurring is seen. No fracture is seen. Impression: No fracture noted. Osteoarthritic changes. Signed by Brett Gambino MD 12/02/2016 05:01 P
[2016-12-02] MEDS ORDERED: OXYC1TAB23 PO (17:13)
== END 2016-12-02 17:23 | disposition home or self-care (01) ==
LOC: M ED 15:05
DX: S93.412A Sprain of calcaneofibular ligament of left ankle, initial encounter (principal); X50.1XXA Overexertion from prolonged static or awkward postures, initial encounter; Z79.4 Long term (current) use of insulin; Y92.099 Unspecified place in other non-institutional residence as the place of occurrence of the external cause; Y93.9 Activity, unspecified; Y99.9 Unspecified external cause status; M19.072 Primary osteoarthritis, left ankle and foot; E10.9 Type 1 diabetes mellitus without complications; I10 Essential (primary) hypertension; F17.200 Nicotine dependence, unspecified, uncomplicated; Z86.73 Personal history of transient ischemic attack (TIA), and cerebral infarction without residual deficits; R56.9 Unspecified convulsions; E78.00 Pure hypercholesterolemia, unspecified; J45.909 Unspecified asthma, uncomplicated; J44.9 Chronic obstructive pulmonary disease, unspecified; K21.9 Gastro-esophageal reflux disease without esophagitis; N18.3 Chronic kidney disease, stage 3 (moderate); M19.90 Unspecified osteoarthritis, unspecified site; Z79.82 Long term (current) use of aspirin; Z79.899 Other long term (current) drug therapy; Z91.018 Allergy to other foods; Z88.5 Allergy status to narcotic agent; Z88.0 Allergy status to penicillin

== ENCOUNTER → 2017-01-02 | Outpatient (CLI) | payer OTHER, MEDICAID ==
[~2017-01-02] MED LIST changes: +ALBU17IN INH; +COMBAER6 INH; +FLUT22IN INH; +OXYC1TAB23 PO
[2017-01-02 13:49] LABS: BASO # 0.1 10^3/uL (0.0-0.2); BASO % 0.6 % (0.0-1.0); EOS # 0.3 10^3/uL (0.0-0.50); EOS % 2.3 % (0.0-3.0); IMMATURE GRANULOCYTE % 0.4 % (0-0); LYMPH # 3.8 10^3/uL (1.5-4.5); LYMPH % 35.2 % (24.0-44.0); MEAN CORPUSCULAR HEMOGLOBIN 32.4 pg (27.0-33.0); MEAN CORPUSCULAR HGB CONC 33.2 g/dl (32.0-36.5); MEAN CORPUSCULAR VOLUME 97.7 fl (80.0-96.0); MONO # 0.8 10^3/uL (0.0-0.8); MONO % 7.2 % (0.0-5.0); NEUTROPHILS # 5.9 10^3/uL (1.8-7.7); NEUTROPHILS % 54.3 % (36.0-66.0); PLATELET COUNT, AUTOMATED 384 10^3/uL (150-450); WHITE BLOOD COUNT 10.9 10^3/uL (4.0-10.0)
[2017-01-02 14:49] LABS: ALBUMIN 3.9 GM/DL (3.2-5.2); CALCIUM LEVEL 8.7 MG/DL (8.8-10.2); CREATININE FOR GFR 2.65 MG/DL (0.70-1.30); GLOMERULAR FILTRATION RATE 26.1 (>49); PHOSPHORUS LEVEL 3.7 MG/DL (2.5-4.9)
== END ==
LOC: M LAB 13:19
PROVIDERS: ATTEND Internal Medicine Nephrology
DX: N18.4 Chronic kidney disease, stage 4 (severe) (principal)

== ENCOUNTER → 2017-04-27 | Outpatient (CLI) | payer OTHER, MEDICAID ==
[2017-04-27 18:08] LABS: BASO # 0.1 10^3/uL (0.0-0.2); BASO % 0.4 % (0.0-1.0); EOS # 0.2 10^3/uL (0.0-0.50); EOS % 2.1 % (0.0-3.0); HEMATOCRIT 35.1 % (42.0-52.0); HEMOGLOBIN 11.4 g/dl (14.0-18.0); IMMATURE GRANULOCYTE # 0.1 10^3/uL (0-0); IMMATURE GRANULOCYTE % 0.5 % (0-0); LYMPH # 4.4 10^3/uL (1.5-4.5); LYMPH % 39.3 % (24.0-44.0); MEAN CORPUSCULAR HEMOGLOBIN 31.3 pg (27.0-33.0); MEAN CORPUSCULAR HGB CONC 32.5 g/dl (32.0-36.5); MEAN CORPUSCULAR VOLUME 96.4 fl (80.0-96.0); MONO # 0.9 10^3/uL (0.0-0.8); MONO % 8.2 % (0.0-5.0); NEUTROPHILS # 5.6 10^3/uL (1.8-7.7); NEUTROPHILS % 49.5 % (36.0-66.0); PLATELET COUNT, AUTOMATED 474 10^3/uL (150-450); RED BLOOD COUNT 3.64 10^6/uL (4.30-6.10); WHITE BLOOD COUNT 11.2 10^3/uL (4.0-10.0)
[2017-04-27 18:11] LABS: ANION GAP 8 MEQ/L (8-16); BLOOD UREA NITROGEN 60 MG/DL (7-18); CALCIUM LEVEL 8.9 MG/DL (8.8-10.2); CARBON DIOXIDE LEVEL 25 MEQ/L (21-32); CHLORIDE LEVEL 107 MEQ/L (98-107); CREATININE FOR GFR 2.53 MG/DL (0.70-1.30); GLOMERULAR FILTRATION RATE 27.5 (>49); GLUCOSE, FASTING 103 MG/DL (80-110); PHOSPHORUS LEVEL 4.4 MG/DL (2.5-4.9); SODIUM LEVEL 140 MEQ/L (136-145); URIC ACID 3.7 MG/DL (3.5-7.2)
[2017-04-27 18:25] LABS: TOTAL 25(OH) VITAMIN D 40.3 NG/ML (30.0-100.0)
[2017-04-27 18:26] LABS: PTH INTACT 244.3 PG/ML (14.0-72.0)
== END ==
LOC: M SMT 14:52
DX: N18.4 Chronic kidney disease, stage 4 (severe) (principal); N25.81 Secondary hyperparathyroidism of renal origin; E55.9 Vitamin D deficiency, unspecified; D63.1 Anemia in chronic kidney disease; M10.9 Gout, unspecified
CPT/HCPCS: 84550

== ENCOUNTER → 2017-05-09 | Outpatient (REF) | payer OTHER, MEDICAID ==
[2017-05-09 18:56] LABS: ALBUMIN 4.2 GM/DL (3.2-5.2); ALBUMIN/GLOBULIN RATIO 1.24 (1.00-1.93); ALKALINE PHOSPHATASE 128 U/L (45-117); ALT/SGPT 29 U/L (12-78); ANION GAP 9 MEQ/L (8-16); AST/SGOT 25 U/L (7-37); BILIRUBIN,TOTAL 0.4 MG/DL (0.2-1.0); BLOOD UREA NITROGEN 83 MG/DL (7-18); CALCIUM LEVEL 8.8 MG/DL (8.8-10.2); CARBON DIOXIDE LEVEL 22 MEQ/L (21-32); CHLORIDE LEVEL 106 MEQ/L (98-107); CHOLESTEROL LEVEL 175 MG/DL (<200); CHOLESTEROL RISK RATIO 3.431 (<5); CREATININE FOR GFR 3.01 MG/DL (0.70-1.30); GLOMERULAR FILTRATION RATE 22.5 (>49); GLUCOSE, FASTING 295 MG/DL (70-100); HDL CHOLESTEROL 51 MG/DL (>40); LDL CHOLESTEROL 60.8 MG/DL (<100); NON-HDL-C 124 MG/DL; POTASSIUM SERUM 4.9 MEQ/L (3.5-5.1); SODIUM LEVEL 137 MEQ/L (136-145); TOTAL PROTEIN 7.6 GM/DL (6.4-8.2); TRIGLYCERIDES LEVEL 316 MG/DL (<150)
[2017-05-09 20:08] LABS: BASO # 0.1 10^3/uL (0.0-0.2); BASO % 0.5 % (0.0-1.0); EOS # 0.2 10^3/uL (0.0-0.50); EOS % 1.8 % (0.0-3.0); HEMATOCRIT 35.9 % (42.0-52.0); HEMOGLOBIN 11.5 g/dl (14.0-18.0); IMMATURE GRANULOCYTE % 0.2 % (0-0); LYMPH # 2.6 10^3/uL (1.5-4.5); LYMPH % 28.3 % (24.0-44.0); MEAN CORPUSCULAR VOLUME 96.8 fl (80.0-96.0); MONO # 0.6 10^3/uL (0.0-0.8); MONO % 6.4 % (0.0-5.0); NEUTROPHILS # 5.8 10^3/uL (1.8-7.7); NEUTROPHILS % 62.8 % (36.0-66.0); PLATELET COUNT, AUTOMATED 415 10^3/uL (150-450); RED BLOOD COUNT 3.71 10^6/uL (4.30-6.10); RED CELL DISTRIBUTION WIDTH 14.7 % (11.5-14.5); WHITE BLOOD COUNT 9.2 10^3/uL (4.0-10.0)
[2017-05-09 22:11] LABS: ESTIMATED AVERAGE GLUCOSE 146 MG/DL (60-110); HEMOGLOBIN A1c 6.7 %
== END ==
LOC: M LAB REF 17:33
DX: D64.9 Anemia, unspecified (principal); E11.9 Type 2 diabetes mellitus without complications; E55.9 Vitamin D deficiency, unspecified
CPT/HCPCS: 84443

== ENCOUNTER → 2017-08-29 | Outpatient (CLI) | payer OTHER ==
[2017-08-29 15:11] LABS: BASO # 0.1 10^3/uL (0.0-0.2); BASO % 0.6 % (0.0-1.0); EOS # 0.5 10^3/uL (0.0-0.50); EOS % 4.6 % (0.0-3.0); HEMATOCRIT 36.5 % (42.0-52.0); HEMOGLOBIN 11.8 g/dl (13.5-17.5); IMMATURE GRANULOCYTE % 0.3 % (0-3.0); LYMPH # 3.9 10^3/uL (1.5-4.5); LYMPH % 38.3 % (24.0-44.0); MEAN CORPUSCULAR HEMOGLOBIN 31.6 pg (27.0-33.0); MEAN CORPUSCULAR HGB CONC 32.3 g/dl (32.0-36.5); MEAN CORPUSCULAR VOLUME 97.6 fl (80.0-96.0); MONO # 0.7 10^3/uL (0.0-0.8); MONO % 7.3 % (0.0-5.0); NEUTROPHILS # 4.9 10^3/uL (1.8-7.7); NEUTROPHILS % 48.9 % (36.0-66.0); PLATELET COUNT, AUTOMATED 358 10^3/uL (150-450); RED BLOOD COUNT 3.74 10^6/uL (4.30-6.10); RED CELL DISTRIBUTION WIDTH 14.6 % (11.5-14.5)
[2017-08-29 15:35] LABS: ALBUMIN 3.9 GM/DL (3.2-5.2); ANION GAP 3 MEQ/L (8-16); BLOOD UREA NITROGEN 56 MG/DL (7-18); CALCIUM LEVEL 8.9 MG/DL (8.8-10.2); CARBON DIOXIDE LEVEL 29 MEQ/L (21-32); CHLORIDE LEVEL 109 MEQ/L (98-107); GLOMERULAR FILTRATION RATE 25.5 (>49); GLUCOSE, FASTING 170 MG/DL (70-100); PHOSPHORUS LEVEL 3.9 MG/DL (2.5-4.9); SODIUM LEVEL 141 MEQ/L (136-145)
[2017-08-29 15:38] LABS: POTASSIUM SERUM 5.2 MEQ/L (3.5-5.1)
[2017-08-29 15:45] LABS: PTH INTACT 263.9 PG/ML (18.5-88.0); TOTAL 25(OH) VITAMIN D 47.7 NG/ML (30.0-100.0)
== END ==
LOC: M LAB 14:22
DX: M10.9 Gout, unspecified (principal); D63.1 Anemia in chronic kidney disease; N25.81 Secondary hyperparathyroidism of renal origin; E55.9 Vitamin D deficiency, unspecified; N18.4 Chronic kidney disease, stage 4 (severe)
CPT/HCPCS: 84550

== ENCOUNTER → 2017-11-06 | Outpatient (REF) | payer OTHER, MEDICAID ==
[2017-11-06 20:06] LABS: BASO # 0.1 10^3/uL (0.0-0.2); BASO % 0.6 % (0.0-1.0); EOS # 0.5 10^3/uL (0.0-0.50); EOS % 4.9 % (0.0-3.0); HEMATOCRIT 37.6 % (42.0-52.0); HEMOGLOBIN 12.2 g/dl (13.5-17.5); IMMATURE GRANULOCYTE % 0.6 % (0-3.0); LYMPH # 2.9 10^3/uL (1.5-4.5); MEAN CORPUSCULAR HGB CONC 32.4 g/dl (32.0-36.5); MEAN CORPUSCULAR VOLUME 98.7 fl (80.0-96.0); MONO # 0.8 10^3/uL (0.0-0.8); MONO % 8.5 % (0.0-5.0); NEUTROPHILS # 5.4 10^3/uL (1.8-7.7); NEUTROPHILS % 55.4 % (36.0-66.0); PLATELET COUNT, AUTOMATED 509 10^3/uL (150-450); RED BLOOD COUNT 3.81 10^6/uL (4.30-6.10); RED CELL DISTRIBUTION WIDTH 14.7 % (11.5-14.5); WHITE BLOOD COUNT 9.7 10^3/uL (4.0-10.0)
[2017-11-06 20:28] LABS: ALBUMIN 3.8 GM/DL (3.2-5.2); ALBUMIN/GLOBULIN RATIO 0.93 (1.00-1.93); ALKALINE PHOSPHATASE 114 U/L (45-117); ALT/SGPT 30 U/L (12-78); ANION GAP 9 MEQ/L (8-16); AST/SGOT 31 U/L (7-37); BILIRUBIN,TOTAL 0.3 MG/DL (0.2-1.0); BLOOD UREA NITROGEN 53 MG/DL (7-18); CALCIUM LEVEL 8.6 MG/DL (8.8-10.2); CARBON DIOXIDE LEVEL 25 MEQ/L (21-32); CHLORIDE LEVEL 103 MEQ/L (98-107); CREATININE FOR GFR 2.39 MG/DL (0.70-1.30); GLOMERULAR FILTRATION RATE 29.3 (>49); GLUCOSE, FASTING 85 MG/DL (70-100); SODIUM LEVEL 137 MEQ/L (136-145); TOTAL PROTEIN 7.9 GM/DL (6.4-8.2)
[2017-11-06 20:33] LABS: POTASSIUM SERUM 5.8 MEQ/L (3.5-5.1)
[2017-11-06 21:16] LABS: ESTIMATED AVERAGE GLUCOSE 160 MG/DL (60-110); HEMOGLOBIN A1c 7.2 %
== END ==
LOC: M LAB REF 18:56
DX: E11.29 Type 2 diabetes mellitus with other diabetic kidney complication (principal)

== ENCOUNTER → 2018-02-22 | Outpatient (CLI) | payer OTHER ==
[2018-02-22 17:29] LABS: BASO % 0.4 % (0.0-1.0); EOS # 0.4 10^3/uL (0.0-0.50); EOS % 3.7 % (0.0-3.0); HEMATOCRIT 44.8 % (42.0-52.0); HEMOGLOBIN 14.4 g/dl (13.5-17.5); IMMATURE GRANULOCYTE % 0.4 % (0-3.0); LYMPH # 3.8 10^3/uL (1.5-4.5); MEAN CORPUSCULAR HEMOGLOBIN 31.8 pg (27.0-33.0); MEAN CORPUSCULAR HGB CONC 32.1 g/dl (32.0-36.5); MEAN CORPUSCULAR VOLUME 98.9 fl (80.0-96.0); MONO # 0.9 10^3/uL (0.0-0.8); MONO % 8.1 % (0.0-5.0); NEUTROPHILS # 5.7 10^3/uL (1.8-7.7); NEUTROPHILS % 52.4 % (36.0-66.0); PLATELET COUNT, AUTOMATED 336 10^3/uL (150-450); RED BLOOD COUNT 4.53 10^6/uL (4.30-6.10); RED CELL DISTRIBUTION WIDTH 13.8 % (11.5-14.5); WHITE BLOOD COUNT 10.9 10^3/uL (4.0-10.0)
[2018-02-22 18:06] LABS: ALBUMIN 3.7 GM/DL (3.2-5.2); ANION GAP 10 MEQ/L (8-16); BLOOD UREA NITROGEN 42 MG/DL (7-18); CALCIUM LEVEL 8.6 MG/DL (8.8-10.2); CARBON DIOXIDE LEVEL 28 MEQ/L (21-32); CHLORIDE LEVEL 99 MEQ/L (98-107); CREATININE FOR GFR 2.28 MG/DL (0.70-1.30); GLOMERULAR FILTRATION RATE 30.9 (>49); GLUCOSE, FASTING 155 MG/DL (70-100); POTASSIUM SERUM 4.4 MEQ/L (3.5-5.1); SODIUM LEVEL 137 MEQ/L (136-145); URIC ACID 5.4 MG/DL (3.5-7.2)
[2018-02-22 18:12] LABS: PTH INTACT 196.5 PG/ML (18.5-88.0)
== END ==
LOC: M SMT 14:52
DX: N18.4 Chronic kidney disease, stage 4 (severe) (principal); D63.1 Anemia in chronic kidney disease; M10.9 Gout, unspecified
CPT/HCPCS: 84550